=== PATIENT | male | born 2000 | race Caucasian/White ===

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

== ENCOUNTER 2022-06-19 18:36 | Emergency (ER) | payer BC, OTHER ==
--- NOTE | 2022-06-19 22:07 | ED Physician Documentation ---
PD HPI UPPER EXT INJURY - Stated complaint Stated Complaint: L INDEX LAC - Chief complaint Chief Complaint: Laceration - History obtained from History obtained from: Patient - History of Present Illness Location: Left, Finger (index) Type of injury: Laceration Where injury occurred: Home Pain level max: 3 Pain level now: 2 Improved by: Rest Worsened by: Moving, Palpating Associated symptoms: No: Numbness, Tingling Contributing factors: No: Anticoagulated - Additonal information Additional information: 22-year-old male presents the emergency department with a left index finger laceration from a knife at home. Has a small flap laceration on the tip of the finger. Tetanus up to date. He states he was unable to stop the bleeding at home. No numbness or tingling. Patient is right-handed Review of Systems Constitutional: denies: Fever Neurologic: denies: Headache PD PAST MEDICAL HISTORY - Past Medical History Past Medical History: Yes Respiratory: Asthma - Past Surgical History Past Surgical History: No - Present Medications Home Medications: Ambulatory Orders Medication Instructions Recorded Confirmed No Known Home Medications 06/19/22 06/19/22 - Allergies Allergies/Adverse Reactions: Allergies Allergy/AdvReac Type Severity Reaction Status Date / Time No Known Drug Allergies Allergy Verified 06/19/22 18:46 - Social History Does the pt smoke?: No Smoking Status: Never smoker Does the pt drink ETOH?: No Does the pt have substance abuse?: No - Immunizations Immunizations are current?: Yes PD ED PE NORMAL - Vitals Vital signs reviewed: Yes - General General: Alert and oriented X 3, No acute distress - Derm Derm: Warm and dry - Extremities Extremities: Other (R index finger - flap laceration tip of finger. NVI. circular, 0.3cm) Results - Vitals Vitals: Vital Signs - 24 hr 06/19/22 06/19/22 18:43 22:26 Temperature 36.5 C 36.5 C Heart Rate 55 L 60 Respiratory 16 16 Rate Blood Pressure 145/71 H 132/72 H O2 Saturation 99 100 Oxygen O2 Source Room air PD MEDICAL DECISION MAKING - ED course Complexity details: considered differential, d/w patient ED course: Wound was cleansed. A finger tourniquet was applied to stop the bleeding and Dermabond was applied to the flap. When the glue had dried, the tourniquet was removed. No further bleeding. No bony exposure. A foam splint was applied to protect the area. Warnings of infection and instructions on wound care given at bedside.. Patient counseled regarding signs and symptoms for which I believe and urgent re-evaluation would be necessary. Patient with good understanding of and agreement to plan and is comfortable going home at this time This document was made in part using voice recognition software. While efforts are made to proofread this document, sound alike and grammatical errors may occur. Departure - Departure Disposition: 01 Home, Self Care Clinical Impression: Finger laceration Qualifiers: Encounter type: initial encounter Finger: index finger Damage to nail status: without damage Foreign body presence: without foreign body Laterality: left Qualified Code(s): S61.211A - Laceration without foreign body of left index finger without damage to nail, initial encounter Condition: Good Instructions: ED Laceration Ext Skin Glue Follow-Up: KETTY ROTH DO [Primary Care Provider] - As Needed Comments: Keep the wound clean. Do not apply any ointment as this may dissolve the glue. You can use the splint to help protect the area from getting hit. Return if you notice redness, swelling or drainage from the wound. Discharge Date/Time: 06/19/22 22:26
[2022-06-19 22:28] VITALS: BP 132/72
== END 2022-06-19 22:26 | disposition home or self-care (01) ==
LOC: ED 18:36
DX: S61.211A Laceration without foreign body of left index finger without damage to nail, initial encounter (principal); W26.0XXA Contact with knife, initial encounter
CPT/HCPCS: 99281; 99282